=== PATIENT | female | born 1995 | race Two or more races ===

== ENCOUNTER 2016-04-11 13:16 | Emergency (ER) | payer SELFPAY ==
[~2016-04-11] VITALS: Ht 160 cm; Wt 76.2 kg
[~2016-04-11 13:16] MED LIST: METR500T PO; TRAM-29 PO
[2016-04-11 14:19] VITALS: BP 122/65
--- NOTE | 2016-04-11 15:04 | RAD ---
Right knee with patella, 4 views, 04/11/2016: History: Fall, pain No fracture or dislocation is identified. No significant joint effusion is evident. IMPRESSION: No acute right knee abnormality is detected.
[2016-04-11] MEDS ORDERED: NAPR500T8 PO (15:56)
--- NOTE | 2016-04-11 15:57 | PHYS DOC ---
Past Medical History Past Medical History: No Pertinent History Past Surgical History: No Surgical History Alcohol Use: Occasionally Drug Use: None Adult General Chief Complaint Chief Complaint: LOWER EXT PAIN HPI HPI Patient is a 21 year old female who presents with mild right anterior knee pain that began yesterday after she fell on her right knee twice. Review of Systems Review of Systems Constitutional: Denies fever or chills [] Musculoskeletal: Mild right anterior knee pain Integument: Denies rash or skin lesions [] Neurologic: Denies headache, focal weakness or sensory changes [] Endocrine: Denies polyuria or polydipsia [] Allergies Allergies Allergies Coded Allergies Type Severity Reaction Last Updated Verified Iodinated Contrast Media - IV Dye Allergy Severe ANAPHYLAXIS 09/10/13 Yes Physical Exam Physical Exam Constitutional: Well developed, well nourished, no acute distress, non-toxic appearance. [] Skin: Warm, dry, no erythema, no rash. [] Back: No tenderness, no CVA tenderness. [] Extremities: Right knee with no obvious edema and obvious ecchymosis, tenderness on palpation of right anterior knee. Limited range of motion to the right knee especially flexion and extension due to pain. +2 right pedal pulse. Cap refill less than 2 seconds to the right lower extremity. Sensation intact to the right lower extremity. Neurologic: Alert and oriented X 3, normal motor function, normal sensory function, no focal deficits noted. [] Psychologic: Affect normal, judgement normal, mood normal. [] Current Patient Data Vital Signs Vital Signs Date Time Temp Pulse Resp B/P Pulse Ox O2 Delivery O2 Flow Rate FiO2 04/11/16 14:19 98.2 72 18 98 Room Air 98.2 EKG EKG [] Radiology/Procedures Radiology/Procedures [] Course & Med Decision Making Course & Med Decision Making Pertinent Labs and Imaging studies reviewed. (See chart for details) Patient is in the ED with right knee pain after falling on it twice yesterday. Right knee x-rays 4 views interpreted by radiologist are negative for any acute findings. Immobilizer applied to the right knee by the ED RN, neurovascular exam done by me is normal, cap refill is <2 seconds. Elevation encouraged. Naproxen for pain. Follow-up with ortho in one week. Dragon Disclaimer Dragon Disclaimer This electronic medical record was generated, in whole or in part, using a voice recognition dictation system. Departure Departure Impression: Primary Impression: Contusion of right knee Additional Impression: Fall from standing Disposition: 01 HOME, SELF-CARE Condition: STABLE Referrals: NO PCP (PCP) KAI CASTRO II, MD See him in one week if pain continues Patient Instructions: Contusion, [id number] Additional Instructions: You were seen for knee contusion after falling on it. Please ice and elevate the extremity. Take the prescribed medicine as needed. Follow-up with orthopedic doctor provided in a week. Scripts Naproxen 500 Mg Tablet.dr1 Tab PO BID #60 TAB Ref 2 Prov:FANTASMA MARTINEZ APRN 04/11/16 Problem Qualifiers Primary Impression: Contusion of right knee Encounter type: initial encounter Qualified Code: S80.01XA - Contusion of right knee, initial encounter Additional Impression: Fall from standing Encounter type: initial encounter Qualified Code: W19.XXXA - Unspecified fall, initial encounter FANTASMA MARTINEZ [employer] SPECIALIST Apr 11, 2016 15:57
== END 2016-04-11 16:19 | disposition home or self-care (01) ==
LOC: ER 13:16
DX: S80.01XA Contusion of right knee, initial encounter (principal); Z91.041 Radiographic dye allergy status; W19.XXXA Unspecified fall, initial encounter; Y93.89 Activity, other specified; Y92.89 Other specified places as the place of occurrence of the external cause; Y99.8 Other external cause status
CPT/HCPCS: 29505; 73564; 99284-25

== ENCOUNTER 2017-02-06 05:35 | Emergency (ER) | payer OTHER ==
[~2017-02-06] VITALS: Ht 160 cm; Wt 74.8 kg
[2017-02-06 05:35] VITALS: BP 117/72
[~2017-02-06 05:35] MED LIST changes: +NAPR500T8 PO; -TRAM-29 PO; +TRAM-48 PO
[2017-02-06] MEDS ORDERED: ACET325T9 PO (06:44)
[2017-02-06] MEDS ORDERED: ACYC800T PO (06:44)
--- NOTE | 2017-02-06 06:45 | PHYS DOC ---
Past Medical History Past Medical History: No Pertinent History Past Surgical History: No Surgical History Alcohol Use: Occasionally Drug Use: None Adult General Chief Complaint Chief Complaint: FACE PROBLEM HPI HPI Patient is a pleasant 21-year-old otherwise healthy female presents with a small sore to the upper left lip. She awoke this morning she felt localized swelling with evidence of a small rash to the upper lip. She denies any URI symptoms, denies any flulike symptoms, denies any fevers, chills, headache neck pain,, sore throat, sick contacts or new sexual partners. She denies any prior history of the same. She denies any burn to her lip. Review of Systems Review of Systems Constitutional: Denies fever or chills [] Eyes: Denies change in visual acuity, redness, or eye pain [] HENT: Denies nasal congestion or sore throat [] Respiratory: Denies cough or shortness of breath [] Cardiovascular: No additional information not addressed in HPI [] GI: Denies abdominal pain, nausea, vomiting, bloody stools or diarrhea [] : Denies dysuria or hematuria [] Musculoskeletal: Denies back pain or joint pain [] Integument: She has some skin lesions on the upper left lip Neurologic: Denies headache, focal weakness or sensory changes [] All other systems were reviewed and found to be within normal limits, except as documented in this note. Allergies Allergies Allergies Coded Allergies Type Severity Reaction Last Updated Verified Iodinated Contrast Media - IV Dye Allergy Severe ANAPHYLAXIS 09/10/13 Yes Physical Exam Physical Exam Vital signs recorded the chart within normal limits. Constitutional: Well developed, well nourished, no acute distress, non-toxic appearance. [] HENT: Normocephalic, atraumatic, bilateral external ears normal, oropharynx moist, no oral exudates, nose normal. She has a small area of vesicles over the upper left lip there is no open ulcers no oropharynx involvement no mucous membrane involvement other than the lip.[] Eyes: PERRLA, EOMI, conjunctiva normal, no discharge. [] Neck: Normal range of motion, no tenderness, supple, no stridor no lymphadenopathy. [] Cardiovascular:Heart rate regular rhythm, no murmur [] Lungs & Thorax: Bilateral breath sounds clear to auscultation [] Skin: Warm, dry, no erythema, no rash. [] Neurologic: Alert and oriented X 3, speech is normal[] Psychologic: Affect normal, judgement normal, mood normal. [] Current Patient Data Vital Signs Vital Signs Date Time Temp Pulse Resp B/P (MAP) Pulse Ox O2 Delivery O2 Flow Rate FiO2 02/06/17 05:35 98.2 77 16 99 Room Air 98.2 EKG EKG [] Radiology/Procedures Radiology/Procedures [] Course & Med Decision Making Course & Med Decision Making Pertinent Labs and Imaging studies reviewed. (See chart for details) []Presents with I believe is cold sores or on oral herpes virus infection. There is no other signs of burn, mucous members involvement doubt Henley- Chester's, TEN, EM, rash medical decision making reevaluation: The patient is now resting comfortably and feels better, is alert, is nontoxic, and is in no acute distress. The patient has a normal mental status and is neurologically intact. The rash presenting today as part of patient despite does not have any petechiae purpura, there is no palm or sole involvement, there is no joint pain or swelling, there are no mucous membrane lesions, no signs of abscess, and no bullae. The patient appears well, has no fever, no altered mental status, or signs of systemic toxicity. The history, exam, and diagnostic testing (if any) and current condition did not demonstrate signs of sepsis, Poth spotted fever, meningitis, meningococcemia, Lyme disease, toxic shock syndrome, disseminated gonorrhea, endocarditis, measles, mumps, rubella, necrotizing fasciitis, TEN, Tonyn Chester syndrome, pemphigus vulgaris, dress syndrome, staphylococcal scalded skin syndrome or other systemic illness or cardiac further treatment, testing or consultation in the emergency department. The patient's vital signs have been stable, the patient condition is stable and appropriate for discharge. The patient will pursue further outpatient evaluation and primary care management as indicated in the discharge instructions. Dragon Disclaimer Dragon Disclaimer This electronic medical record was generated, in whole or in part, using a voice recognition dictation system. Departure Departure Impression: Primary Impression: Gingivostomatitis Disposition: HOME, SELF-CARE Condition: IMPROVED Referrals: NO PCP (PCP) Patient Instructions: Primary Herpetic Gingivostomatitis Additional Instructions: discharge: I've spoken with the patient and/or caregivers. I've explained the patient's condition, diagnosis and treatment plan based on information available to me at this time. I've answered the patient's and/or caregivers questions and addressed any concerns. The patient and/or caregivers have a good understanding the patient's diagnosis, condition and treatment plan as can be expected at this point. Vital signs have been stabilized. The patient's condition is stable for discharge from the emergency department. The patient will pursue further outpatient evaluation with her primary care provider or other designated consulting physician as outlined in the discharge instructions. Patient and/or caregivers are agreeable to this plan of care and follow-up instructions have been explained in detail. The patient and/or caregivers have received these instructions in written format and expressed understanding of these discharge instructions. The patient and her caregivers are aware that if any significant change in condition or worsening of symptoms should prompt him to immediately return to this of the closest emergency department. If an emergent department is not readily available I would encourage him to call 911. Scripts Acetaminophen (TYLENOL) 325 Mg Tablet 1-2 TAB PO QID, #60 TAB 2 Refills Prov: MORA ANN MD 02/06/17 Acyclovir (ACYCLOVIR) 800 Mg Tablet 1 TAB PO 5XDAY, #35 TAB Prov: MORA ANN MD 02/06/17 MORA ANN MD Feb 06, 2017 06:45
== END 2017-02-06 07:00 | disposition home or self-care (01) ==
LOC: ER 05:35
DX: K05.10 Chronic gingivitis, plaque induced (principal); Z91.041 Radiographic dye allergy status
CPT/HCPCS: 99283

== ENCOUNTER → 2017-10-06 | Outpatient (CLI) | payer OTHER | END | disposition home or self-care (01) | LOC: KCIC MRI 15:50 | DX: G44.52 New daily persistent headache (NDPH) (principal); Z82.49 Family history of ischemic heart disease and other diseases of the circulatory system | CPT/HCPCS: 70551 ==

== ENCOUNTER → 2018-03-16 | Outpatient (CLI) | payer OTHER ==
[~2018-03-16] MED LIST changes: +ACET325T9 PO; +ACYC800T PO
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
== END | disposition home or self-care (01) ==
LOC: KCIC MRI 09:23
PROVIDERS: ATTEND Physician Assistant Medical
DX: S82.144A Nondisplaced bicondylar fracture of right tibia, initial encounter for closed fracture (principal); V89.2XXA Person injured in unspecified motor-vehicle accident, traffic, initial encounter; Y93.89 Activity, other specified; Y92.89 Other specified places as the place of occurrence of the external cause; Y99.8 Other external cause status
CPT/HCPCS: 73721